=== PATIENT | female | born 1950 | race Asian ===

== ENCOUNTER 2018-09-12 19:17 | Inpatient (IN) | payer MEDICAID ==
[~2018-09-12] VITALS: Ht 154.9 cm; Wt 60.3 kg
[2018-09-12 20:00] VITALS: BP 93/75
--- NOTE | 2018-09-12 20:00 | NUR ---
NETWORKS COMPUTER CONSULTANTCLIPPER AND TURNER NOTE: PT ADMITTED FROM [facility] VIA GURNEY ACCOMPANIED BY [id number]. ADMITTING DIAGNOSIS OF NEW ONSET AFIB. PT IS ALERT AND ORIENTED X4. ABLE TO MAKE NEEDS KNOWN. PT STILL COMPLAINING OF 5/10 CHEST PAIN. ON 2LPM NASAL CANNULA, NO SOB NOTED AT THIS TIME. AFIB ON TELE MONITOR HR 109BPM. PT WAS SEEN BY PLANT TOUR GUIDE SAE BRADLEY. IV ON LEFT ANTECUBITAL #20 INTACT AND PATENT, FLUSHING WELL. NO SIGNS/SYMPTOMS OF INFILTRATION NOTED. PERTINENT ASSESSMENTS DONE. SKIN IS INTACT. PT IS AMBULATORY. CALL LIGHT PLACED WITHIN REACH. KEPT CLEAN, DRY AND COMFORTABLE. SAFETY AND FALL PRECAUTIONS OBSERVED AND MAINTAINED. WILL CONTINUE TO MONITOR PT.
[2018-09-12] MEDS ORDERED: ASPI-1169 PO (21:00)
[2018-09-12] MEDS ORDERED: FERR325T23 PO (21:00)
[2018-09-12] MEDS ORDERED: CARV3.122 PO (21:00)
[2018-09-12] MEDS ORDERED: ONDANSETRON HCL/PF 4 MG/2 ML VIAL IVP PRN (22:00)
[2018-09-12] MEDS ORDERED: Z GUARD REMEDY 2 OZ OINT TP PRN (22:00)
[2018-09-12] MEDS ORDERED: NITROGLYCERIN 0.4 MG/TAB BOTTLE SL PRN (22:00)
[2018-09-12] MEDS ORDERED: ZOLPIDEM TARTRATE 5 MG TABLET PO PRN (22:00)
[2018-09-12] MEDS ORDERED: ACETAMINOPHEN 325 MG TABLET PO PRN (22:00)
[2018-09-12] MEDS ORDERED: MAGNESIUM HYDROXIDE 30 ML UDC PO PRN (22:00)
[2018-09-12] MEDS ORDERED: MAG HYDROX/AL HYDROX/SIMETH 30 ML UDC PO PRN (22:00)
[2018-09-12] MEDS: MORPHINE SULFATE INJ 2 MG/ML DISP.SYRIN IV PRN (22:51)
[2018-09-12] MEDS ORDERED: IV NS 0.9% 1,000 ML IV PRN (23:00)
[2018-09-13] VITALS: BP 93/54
[2018-09-13 04:00] VITALS: BP 95/47
[2018-09-13 06:34] LABS: CALCIUM, SERUM 7.9 mg/dL (8.5-10.1); CREATININE 0.6 mg/dL (0.6-1.3); MAGNESIUM 2.1 mg/dL (1.8-2.4); PHOSPHORUS 3.7 mg/dL (2.5-4.9); POTASSIUM 3.7 mmol/L (3.5-5.1)
--- NOTE | 2018-09-13 06:37 | NUR ---
X RAY EQUIPMENT TESTER NOTE: NO CHANGES NOTED THROUGHOUT THE SHIFT. NO APPARENT DISTRESS NOTED. NO COMPLAINTS OF PAIN OR DISCOMFORT AT THIS TIME. ON 2LPM NASAL CANNULA, NO SOB NOTED. IV ON LEFT ANTECUBITAL #20 INTACT AND PATENT, IVF INFUSING WELL. STILL A. FIB ON TELE MONITOR HR 102BPM. KEPT CLEAN, DRY AND COMFORTABLE. SAFETY AND FALL PRECAUTIONS OBSERVED AND MAINTAINED. WILL ENDORSE TO DAY SHIFT RN FOR CONTINUITY OF CARE.
[2018-09-13 06:42] LABS: BASOPHILS # (AUTO) 0.1 /CMM (0.0-0.2); BASOPHILS % (AUTO) 0.8 % (0.0-2.0); EOSINOPHILS % (AUTO) 3.2 % (0.0-6.0); HEMATOCRIT 33 % (33-45); HEMOGLOBIN 10.2 g/dL (11.5-14.8); LYMPHOCYTES # (AUTO) 2.8 /CMM (0.8-4.8); LYMPHOCYTES % (AUTO) 39.5 % (20.0-44.0); MEAN CORPUSCULAR HGB CONC 31 g/dl (31.0-36.0); MEAN CORPUSCULAR VOLUME 69 fL (82-100); MONOCYTES # (AUTO) 0.5 /CMM (0.1-1.30); NEUTROPHILS # (AUTO) 3.5 /CMM (1.8-8.9); NEUTROPHILS % (AUTO) 49.5 % (43.0-81.0); PLATELET COUNT (AUTO) 193 /CMM (150-450); WHITE BLOOD COUNT (AUTO) 7.1 K/uL (4.3-11.0)
[2018-09-13 07:23] LABS: THYROID STIMULATING HORMONE 1.955 uIU/mL (0.358-3.74)
[2018-09-13] MEDS: PANTOPRAZOLE 40 MG TABLET.DR PO SCH (07:51)
[2018-09-13 08:00] VITALS: BP_SYST 83; BP_SYST 97; BP_DIAS 53; BP_DIAS 64
[2018-09-13] MEDS: CARVEDILOL 6.25 MG TABLET PO SCH ×2 (09:00→20:23)
[2018-09-13] MEDS: ASPIRIN 81 MG TAB.CHEW PO SCH (09:32)
[2018-09-13] MEDS ORDERED: AMIODARONE 150 MG in IV D5W 100 ML IV ONE (10:00)
[2018-09-13] MEDS ORDERED: AMIODARONE 900 MG in IV D5W 500 ML IV PRN (10:00)
[2018-09-13] MEDS ORDERED: AMIODARONE 900 MG in IV D5W 482 ML IV PRN (10:30)
[2018-09-13] MEDS: ATORVASTATIN 10 MG TABLET PO SCH (10:52)
[2018-09-13] MEDS: MORPHINE SULFATE INJ 2 MG/ML DISP.SYRIN IV PRN (11:16)
[2018-09-13 12:00] VITALS: BP 92/64
[2018-09-13 16:00] VITALS: BP 94/52
--- NOTE | 2018-09-13 19:10 | NUR ---
MERISSA RN CLOSING NOTES PT ENDORSED TO PM SHIFT FOR PRINCESS. PT RESTING IN BED, PT STATES, "IM FEELING SO MUCH BETTER." AT BEDSIDE. AMIODRIP RUNNING VIA R WRIST. PT AFIB CONTROLLED ON TELE. PT FELT BETTER AFTER NITROGLYCERIN FOR CHEST PAIN. OB STOOL NOT COLLECTED; PT HAD NO BM. BED IN LOCKED/LOWEST POSITION. CALL LIGHT IN REACH.
[2018-09-13 20:00] VITALS: BP 95/52
[2018-09-14] VITALS: BP 96/55
[2018-09-14 04:00] VITALS: BP 94/52
--- NOTE | 2018-09-14 05:25 | NUR ---
RT NOTE EKG RESULTS RELAYED TO RN.
[2018-09-14 07:27] LABS: BASOPHILS # (AUTO) 0.1 /CMM (0.0-0.2); BASOPHILS % (AUTO) 0.8 % (0.0-2.0); EOSINOPHILS % (AUTO) 2.8 % (0.0-6.0); HEMATOCRIT 35 % (33-45); HEMOGLOBIN 10.7 g/dL (11.5-14.8); LYMPHOCYTES # (AUTO) 2.1 /CMM (0.8-4.8); LYMPHOCYTES % (AUTO) 29.1 % (20.0-44.0); MEAN CORPUSCULAR HGB CONC 31 g/dl (31.0-36.0); MEAN CORPUSCULAR VOLUME 69 fL (82-100); MONOCYTES # (AUTO) 0.5 /CMM (0.1-1.30); MONOCYTES % (AUTO) 6.8 % (2.0-12.0); NEUTROPHILS # (AUTO) 4.3 /CMM (1.8-8.9); NEUTROPHILS % (AUTO) 60.5 % (43.0-81.0); PLATELET COUNT (AUTO) 190 /CMM (150-450); RED BLOOD CELL COUNT(AUTO) 5.04 MIL/uL (4.0-5.2); WHITE BLOOD COUNT (AUTO) 7.1 K/uL (4.3-11.0)
[2018-09-14 07:49] LABS: CALCIUM, SERUM 8.4 mg/dL (8.5-10.1); CREATININE 0.7 mg/dL (0.6-1.3); PHOSPHORUS 3.8 mg/dL (2.5-4.9); POTASSIUM 3.9 mmol/L (3.5-5.1)
[2018-09-14 08:00] VITALS: BP 104/61
[2018-09-14] MEDS: ASPIRIN 81 MG TAB.CHEW PO SCH (08:17)
[2018-09-14] MEDS: ATORVASTATIN 10 MG TABLET PO SCH (08:17)
[2018-09-14] MEDS: PANTOPRAZOLE 40 MG TABLET.DR PO SCH (08:18)
[2018-09-14] MEDS: CARVEDILOL 6.25 MG TABLET PO SCH (08:20)
--- NOTE | 2018-09-14 08:30 | NUR ---
RN NOTES PATIENT IS AOX4 ABLE TO MAKE KNOWN NEEDS. DENIES PAIN, DENIES PALPITATION , DENIES CHEST PAIN SHE "FEELS MUCH BETTER" STATED BY PATIENT. NO ACUTE RESPIRATORY DISTRESS ON ROOM AIR. NSR ON TELE MONITOR. CONTINUE WITH AMIODARONE DRIP 0.5 MG/MIN TO COMPLETE X 24H. IV ON LAC G 20 AND RIGHT WRIST G 20 INTACT AND PATENT, PATIENT REQUESTED TO DISCONTINUE IV SITE ON LAC , EXPLAINED THE RISK AND BENEFITS OF REMOVING IV SITE. PT IS AWARE. PATIENT ATE 100% OF BREAKFAST. REMINDED TO USE CALL LIGHT FOR ASSISTANCE. KEPT WITHIN EASY REACH. PT IS CLEAN AND DRY WILL CONTINUE TO MONITOR.
[2018-09-14] MEDS ORDERED: AMIODARONE HCL 200 MG TABLET PO SCH (11:30)
[2018-09-14 12:00] VITALS: BP 127/52
[2018-09-14] MEDS ORDERED: ATOR10TA PO (13:10)
[2018-09-14] MEDS ORDERED: AMIO200T7 PO (13:10)
[2018-09-14] MEDS ORDERED: RIVA10TA PO (13:10)
--- NOTE | 2018-09-14 15:35 | NUR ---
RN NOTES PATIENT DISCHARGE TODAY BY DR. CEDENO IN STABLE CONDITION, NO PALPITATION , NO CHEST PAIN, NO SOB OR DISTRESS. DISCHARGE PAPER , DISCHARGE INSTRUCTION AND PRESCRIPTION EXPLAINED TO PATIENT WITH HOME MEDS AND NEW PRESCRIPTION MEDS, LETTER TO RETURN TO WORK GIVEN. IV SITE REMOVED INTACT AND PATENT NO BLEEDING. PATIET LEFT WITH KEO. ALL INFORMATION GIVEN. EXIT CARE DONE
[2018-09-14] MEDS ORDERED: RIVAROXABAN 10 MG TABLET PO SCH (17:00)
[2018-09-15 12:12] LABS: *HGBFR CHEMOGLOBIN SOLUBILITY Negative (Negative); *HGBFRC HEMOGLOBIN A 98.5 % (96.4-98.8); *HGBFRC HEMOGLOBIN A2 1.5 % (1.8-3.2)
== END 2018-09-14 15:27 | disposition home or self-care (01) | DRG 201 ==
LOC: TELE1 19:47 → TELE-TD 09-13 09:47
PROVIDERS: ADMIT Nurse Practitioner Acute Care; ATTEND Student in an Organized Health Care Education/Training Program
DX: I48.91 Unspecified atrial fibrillation (principal); I21.A1 Myocardial infarction type 2; I10 Essential (primary) hypertension; F41.9 Anxiety disorder, unspecified; E78.5 Hyperlipidemia, unspecified; D64.9 Anemia, unspecified
CPT/HCPCS: 36415; 71045-TC; 80048-TC; 80061-TC; 82728-TC; 83021; 83540-TC; 83735-TC; 84100-TC; 84439-TC; 84443-TC; 84484-TC; 85025-TC; 85660; 85730-TC; 87081-TC; 93307-TC; G0378; J0282; J2270; J2405; J7030; J7060